=== PATIENT | male | born 1950 | race American Indian/Alaskan Native ===

== ENCOUNTER 2017-08-30 06:07 | Day surgery (SDC) | payer MEDICARE, OTHER ==
[2017-08-30] MEDS ORDERED: WATER FOR IRRIG STERILE IR ONE (07:15)
[2017-08-30] MEDS ORDERED: DIPRIVAN 10 MG/ML IV ONE (07:45)
[2017-08-30] MEDS ORDERED: NACL 0.9% 1000 ML 1,000 ML IV SCH (08:00)
--- NOTE | 2017-08-30 08:10 | Anesthesia Consultation ---
Anesthesia Consult and Med Hx Date of service: 08/30/17 - Airway Anesthetic Teeth Evaluation: Poor (missing all front upper teeth) ROM Head & Neck: Adequate Mental/Hyoid Distance: Adequate Mallampati Class: Class II Intubation Access Assessment: Probably Good - Pulmonary Exam CTA: Yes - Cardiac Exam Cardiac Exam: RRR - Pre-Operative Health Status ASA Pre-Surgery Classification: ASA3 Proposed Anesthetic Plan: MAC - Pulmonary Hx Smoking: Yes (quit 40 yr ago) Hx Asthma: No Hx Sleep Apnea: No - Cardiovascular System Hx Hypertension: Yes Hx Heart Attack/AMI: No Hx Cardia Arrhythmia: Yes (denies CP or SOB) - Endocrine Hx Renal Disease: Yes (follow with mobile paint specialist, said it has greatly improved) Hx Non-Insulin Dependent Diabetes: Yes - Other Systems Hx Obesity: Yes - Additional Comments Anesthesia Medical History Comments: NAC
--- NOTE | 2017-08-30 08:10 | Anesthesia Day of Surgery ---
Anesthesia Day of Surgery - Day of Surgery Patient Examined: Yes Patient H&P Reviewed: Yes Patient is NPO: Yes
--- NOTE | 2017-08-30 08:32 | Discharge Summary ---
Providers - Providers Attending physician: LIV LANE Primary care physician: MONET BOJORQUEZ Hospitalization Procedures: egd Hospital course: 67 y.o. male presented to endoscopy for EGD to evaluate the anatomy of his stomach prior to upcoming bariatric surgery. The patient tolerated the procedure well. Disposition: - TO HOME OR SELFCARE Core Measure Documentation - Palliative Care Palliative Care/ Comfort Measures: Not Applicable - Core Measures Any of the following diagnoses?: none Exam - Physical Exam Narrative exam: no change from prior - Constitutional Vitals: Temp Pulse Resp BP Pulse Ox 98.4 F 74 12 184/95 97 08/30/17 07:50 08/30/17 07:50 08/30/17 07:50 08/30/17 07:50 08/30/17 07:50 Plan Follow up with: MONET BOJORQUEZ MD [Primary Care Provider] - 7 Days
--- NOTE | 2017-08-30 08:34 | Operative Report ---
Operative Report Operative Report: OPERATIVE REPORT - EGD DATE 08/30/17 SURGERY: Upper endoscopy. SURGEON: Dr. Kane M.D. TURF SALES PERSON: Willow De Los Santos DO PRE OP DX: dyspepsia POST OP DX: small hiatal hernia TYPE OF ANESTHESIA: MAC. ESTIMATED BLOOD LOSS: None. COMPLICATIONS: None. SPECIMENS REMOVED: None. FINDINGS: 1. Small hiatal hernia. 2. Otherwise, normal esophagus, stomach and first portion of duodenum. INDICATIONS:INDICATION FOR PROCEDURE: Patient is a 67-year-old male with a long history of morbid obesity. He is planned to have a weight loss procedure and is here for preoperative planning EGD to evaluate the anatomy of his stomach. PROCEDURE DETAILS: After consent was reviewed, patient was taken back to the operating room where patient was placed in the left lateral decubitus position and a bite block was placed in the mouth. After a time-out was called, MAC anesthesia was initiated. I then passed the endoscope into his oropharynx, into her esophagus, visualized the entire esophagus, which was all within normal limits. I then visualized the stomach and the first portion of the duodenum and there were no abnormalities I could clearly visualize. I then retroflexed the scope in the stomach and visualized the hiatus and I could see a small hiatal hernia. I then desufflated the stomach and removed the endoscope. Patient tolerated procedure well and was transferred to recovery room in good and stable condition.
[2017-08-30 09:05] VITALS: BP 160/85
--- NOTE | 2017-08-30 09:15 | Post Anesthesia Evaluation ---
- Post Anesthesia Evaluation Patient Participated: Yes Airway Patent: Yes Stable Respiratory Function: Yes Temp > 96.8F: Yes Pain Manageable: Yes Adequeate Hydration: Yes Anesthesia Complications: No
== END 2017-08-30 06:08 | disposition home or self-care (01) ==
LOC: GIO 06:07
PROVIDERS: ATTEND Specialist
DX: R10.13 Epigastric pain (principal); K44.9 Diaphragmatic hernia without obstruction or gangrene; I10 Essential (primary) hypertension; E11.9 Type 2 diabetes mellitus without complications; E66.01 Morbid (severe) obesity due to excess calories; Z68.39 Body mass index [BMI] 39.0-39.9, adult; Z96.659 Presence of unspecified artificial knee joint; Z98.890 Other specified postprocedural states
CPT/HCPCS: 43235; 82962; J2704; J7030

== ENCOUNTER 2017-08-31 09:07 | Inpatient (IN) | payer MEDICARE ==
--- NOTE | 2017-08-31 09:56 | Anesthesia Consultation ---
Anesthesia Consult and Med Hx Date of service: 08/31/17 - Airway Anesthetic Teeth Evaluation: Poor (multiple missing teeth) ROM Head & Neck: Adequate Mental/Hyoid Distance: Adequate Mallampati Class: Class III Intubation Access Assessment: Possibly Difficult - Pre-Operative Health Status ASA Pre-Surgery Classification: ASA3 Proposed Anesthetic Plan: General - Pulmonary Hx Smoking: Yes (quit 40 yr ago) Hx Asthma: No Hx Sleep Apnea: No (analysis consultant ruled out) - Cardiovascular System Hx Hypertension: Yes (since 1975) Hx Heart Attack/AMI: No Hx Cardia Arrhythmia: Yes (denies CP or SOB) - Central Nervous System Hx Back Pain: Yes Hx Psychiatric Problems: No - Endocrine Hx Renal Disease: Yes (follow with tonal regulator, said it has greatly improved) Hx Insulin Dependent Diabetes: Yes (on insulin and Lantus) - Other Systems Hx Alcohol Use: No Hx Substance Use: No Hx Cancer: No Hx Obesity: Yes (BMI 39.1)
[2017-09-06] MEDS ORDERED: REGLAN IV PRN (05:33)
[2017-09-06] MEDS ORDERED: APRESOLINE IV PRN (05:33)
[2017-09-06] MEDS ORDERED: NORCO PO PRN (05:33)
[2017-09-06] MEDS ORDERED: TRANSDERM-SCOP TD SCH (06:00)
[2017-09-06] MEDS ORDERED: ANCEF/STERILE WATER 2 GM/20 ML 2 GM/20 ML SYRINGE IV NR (06:00)
[2017-09-06] MEDS ORDERED: FLAGYL 500 MG/100 ML 500 MG/100 ML BAG IV NR ×2 (06:00→08:00)
[2017-09-06] MEDS ORDERED: LOVENOX SUB-Q NR ×2 (06:00→08:00)
[2017-09-06] MEDS ORDERED: VERSED IV NR (07:00)
[2017-09-06] MEDS ORDERED: PEPCID IV NR (07:00)
[2017-09-06] MEDS ORDERED: NACL 0.9% 1000 ML 1,000 ML IV SCH ×2 (07:00→08:00)
[2017-09-06] MEDS ORDERED: XYLOCAINE MPF 2% ONE (07:37)
[2017-09-06] MEDS ORDERED: ZOFRAN ONE (07:37)
[2017-09-06] MEDS ORDERED: DECADRON ONE (07:37)
[2017-09-06] MEDS ORDERED: ZEMURON IV ONE (07:37)
[2017-09-06] MEDS ORDERED: SUBLIMAZE ONE (07:38)
[2017-09-06] MEDS ORDERED: DIPRIVAN 10 MG/ML IV ONE (07:38)
[2017-09-06] MEDS ORDERED: NACL BACTERIOSTATIC INFILTRATI ONE (07:57)
[2017-09-06] MEDS ORDERED: VERSED ONE (08:03)
[2017-09-06] MEDS ORDERED: PEPCID IV ONE (08:03)
--- NOTE | 2017-09-06 08:03 | Anesthesia Day of Surgery ---
Anesthesia Day of Surgery - Day of Surgery Patient Examined: Yes Patient H&P Reviewed: Yes Patient is NPO: Yes
[2017-09-06] MEDS ORDERED: MARCAINE 0.5% 30 ML INFILTRATI ONE (08:15)
[2017-09-06] MEDS ORDERED: XYLOCAINE 1% MPF 5 mL ONE (08:15)
[2017-09-06] MEDS ORDERED: MARCAINE 0.5% INFILTRATI ONE ×2 (08:45)
[2017-09-06] MEDS ORDERED: NACL 0.9% IR ONE ×2 (08:45)
[2017-09-06] MEDS ORDERED: XYLOCAINE 1% 20 mL INFILTRATI ONE ×2 (08:45)
[2017-09-06] MEDS ORDERED: ROBINUL ONE ×2 (09:32)
[2017-09-06] MEDS ORDERED: NEOSTIGMINE ONE (09:33)
[2017-09-06] MEDS ORDERED: DILAUDID ONE ×2 (09:33→11:24)
[2017-09-06] MEDS ORDERED: NACL 0.9% 1000 ML 1,000 ML ONE (10:04)
--- NOTE | 2017-09-06 10:44 | Operative Report ---
Operative Report Operative Report: Operative Report DATE OF PROCEDURE: 09/06/17 PREOPERATIVE DIAGNOSES: Morbid obesity, hiatal hernia POSTOPERATIVE DIAGNOSES: 1.same as pre-op SURGEON: Dr. Middleton EDGE BEADER: Dr.Speights Mcgarry DO PROCEDURE: 1. laparoscopic sleeve gastrectomy 2. laparoscopic hiatal hernia repair ANESTHESIA: General. ESTIMATED BLOOD LOSS: <5 mL. COMPLICATIONS: None. SPECIMEN: Partial gastrectomy. FINDINGS: 1. hiatal hernia INDICATION FOR PROCEDURE: Patient is a 67-year-old male with a long history of morbid obesity. He has tried multiple efforts at weight loss without longterm success. Pt is here today for sleeve gastrectomy. PROCEDURE IN DETAIL: After consent was reviewed, patient was taken back to the operating room, where patient was placed supine on the bed with both arms out. The patient's legs were doubly strapped to the bed. Patient had a foot board in place. Patient had a body warmer placed by anesthesia. Patient was then prepped and draped in normal sterile surgical fashion. After a time-out was called, I made a stab incision in the umbilicus and placed a Veress needle through this incision and insufflated the abdomen to 18 mmHg pressure. Once the abdomen was adequately insuflated I widened the umbical incision were the veress had been placed and inserted a 15mm trocar. I then placed a 45-degree scope through this port and inspected the abdomen. There was no injury on entry of the abdomen. I then placed two 5-mm ports in the right upper quadrant, one along the anterior axillary line and 1 subxiphoid below the costovertebral angle. I then placed left upper quadrant port along the anterior axillary line in a similar fashion. I then placed the liver retractor through the subxiphoid port and placed the patient in full reverse Trendelenburg. The right and left crura were skeletonized accentuating a small hiatal hernia. An anterior cruraplasty was perfromed with a figure-of-8 stitch using [id number] with 0 ethibond suture to reapproximate the crura. I then identified the pylorus and then counted off 6cm from the pylorus. I then used a LigaSure cutting device to enter into the lesser sac. At that point and then I took down the short gastrics all the way up to the left mireya. Then I had anesthesia pass down a 40 Hebrew bougie along the lesser curvature of the stomach. I made sure everything else was out of the abdomen except the bougie. I then created my gastric sleeve using a 60-mm laparoscopic stapler. . The sleeve looked good without any twisting or torsion. I then had anesthesia to remove the bougie. Hemostasis was obtained along the staple line. I then used Tiseel along the entirety of the staple line and some on the liver. I then removed liver grasper and took it off the field. I then removed the stomach through the 15-mm umbilcal port. I then closed that fascia with a #1 PDS in a [id number] fashion using a Kenroy-Funmilayo. I then desufflated the abdomen and then removed all port sites. I then closed the incisions with 4-0 Monocryl in subcuticular fashion. I then dressed the wounds with steristrips, gauze and tegaderms. Patient tolerated the procedure well and was transferred to recovery room in good and stable condition
[2017-09-06] MEDS ORDERED: DILAUDID IV PRN ×2 (11:25→11:30)
[2017-09-06] MEDS: CATAPRES PO SCH ×2 (14:00→20:42)
[2017-09-06] MEDS: MORPHINE IV PRN ×2 (15:12→20:44)
[2017-09-06] MEDS: ZOFRAN IV PRN (15:23)
[2017-09-06] MEDS: MYLICON PO PRN (18:38)
[2017-09-06] MEDS: NOVOLOG SUB-Q SCH (18:38)
[2017-09-06] MEDS: APRESOLINE PO SCH (22:09)
[2017-09-07] MEDS: NOVOLOG SUB-Q SCH ×2 (01:05→02:11)
[2017-09-07] MEDS: LACTATED RINGERS 1,000 ML IV SCH ×4 (01:40→21:40)
[2017-09-07] MEDS: MYLICON PO PRN (04:15)
[2017-09-07] MEDS: MORPHINE IV PRN ×2 (04:41→10:56)
[2017-09-07] MEDS: CATAPRES PO SCH ×3 (08:00→21:42)
[2017-09-07] MEDS: ZOFRAN IV PRN (10:56)
[2017-09-07] MEDS: APRESOLINE PO SCH ×2 (11:00→21:42)
[2017-09-07] MEDS: LOVENOX SUB-Q SCH (11:00)
[2017-09-07] MEDS: NORVASC PO SCH (11:01)
[2017-09-07 11:18] LABS: Basophils % (Auto) 0.2 % (0.0-1.8); Hematocrit 36.7 % (35.5-45.6); Hemoglobin 11.7 gm/dl (11.8-15.2); Mean Corpuscular HGB Conc 32 % (32-34); Mean Corpuscular Hemoglobin 26 pg (28-32); Mean Corpuscular Volume 83 fl (84-94); Platelet Count 315 K/mm3 (140-440); Red Blood Count 4.43 M/mm3 (3.65-5.03); Red Cell Distribution Width 16.5 % (13.2-15.2); White Blood Count 17.7 K/mm3 (4.5-11.0)
[2017-09-07 12:04] LABS: Alanine Aminotransferase 12 units/L (7-56); Albumin 3.6 g/dL (3.9-5); Albumin/Globulin Ratio 0.9 %; Alkaline Phosphatase 59 units/L (35-129); Anion Gap 22 mmol/L; BUN/Creatinine Ratio 12; Blood Urea Nitrogen 14 mg/dL (9-20); Calcium 9.1 mg/dL (8.4-10.2); Carbon Dioxide 20 mmol/L (22-30); Chloride 101.5 mmol/L (98-107); Glucose 174 mg/dL (75-100); Potassium 3.6 mmol/L (3.6-5.0); Sodium 140 mmol/L (137-145); Total Protein 7.7 g/dL (6.3-8.2)
[2017-09-08] MEDS: NOVOLOG SUB-Q SCH ×2 (02:01→07:21)
[2017-09-08 05:29] LABS: Basophils % (Auto) 0.2 % (0.0-1.8); Hematocrit 34.9 % (35.5-45.6); Hemoglobin 11.8 gm/dl (11.8-15.2); Mean Corpuscular HGB Conc 34 % (32-34); Mean Corpuscular Hemoglobin 28 pg (28-32); Mean Corpuscular Volume 82 fl (84-94); Platelet Count 280 K/mm3 (140-440); Red Blood Count 4.26 M/mm3 (3.65-5.03); Red Cell Distribution Width 16.6 % (13.2-15.2); White Blood Count 14.8 K/mm3 (4.5-11.0)
[2017-09-08 05:46] LABS: Anion Gap 16 mmol/L; BUN/Creatinine Ratio 11; Blood Urea Nitrogen 12 mg/dL (9-20); Calcium 8.9 mg/dL (8.4-10.2); Carbon Dioxide 23 mmol/L (22-30); Chloride 104.2 mmol/L (98-107); Glucose 149 mg/dL (75-100); Potassium 3.4 mmol/L (3.6-5.0); Sodium 140 mmol/L (137-145)
[2017-09-08] MEDS: LACTATED RINGERS 1,000 ML IV SCH (08:02)
[2017-09-08] MEDS: CATAPRES PO SCH ×2 (08:03→13:26)
--- NOTE | 2017-09-08 08:26 | Progress Note ---
Assessment and Plan 67 y.o. male s/p lap gastric sleeve with hiatal hernia repair POD 2 Pt doing better compared to yesterday. He is tolerating liquids without vomiting. He nausea has also improved. He will be discharged today. Subjective Narrative: Pt seen and examined- pt feeling much better compared to yesterday. He is tolerating liquids with less nausea. Denies vomiting. He has been ambulating much more compared to prior . afebrile Objective Vital Signs - 12hr 09/07/17 09/07/17 09/07/17 20:30 20:33 21:42 Temperature 98.3 F Pulse Rate 84 84 Respiratory 20 Rate Blood Pressure 177/85 177/85 Blood Pressure [Left] O2 Sat by Pulse 93 Oximetry 09/07/17 09/08/17 09/08/17 22:00 00:06 00:07 Temperature 98.7 F Pulse Rate 84 86 Respiratory 18 20 Rate Blood Pressure 154/73 Blood Pressure [Left] O2 Sat by Pulse 83 L 83 L Oximetry 09/08/17 09/08/17 09/08/17 00:11 04:42 07:24 Temperature 98.7 F 98.7 F 98.3 F Pulse Rate 82 80 85 Respiratory 20 22 18 Rate Blood Pressure 163/75 164/85 Blood Pressure 154/73 [Left] O2 Sat by Pulse 83 L 93 93 Oximetry 09/08/17 09/08/17 08:03 08:20 Temperature Pulse Rate 86 Respiratory Rate Blood Pressure 164/85 Blood Pressure [Left] O2 Sat by Pulse 95 Oximetry - General physical appearance Narrative Exam: gen: A+Ox3 cardio RRR lungs: equal rise and fall of chets abd: soft, tender at incison sites. no rebound no guarding. incision sites are cdi. ext: no c/c/e - Labs 09/08/17 05:02 09/08/17 05:02 Diabetes panel 09/07/17 09/08/17 Range/Units 11:04 05:02 Sodium 140 140 (137-145) mmol/L Potassium 3.6 3.4 L (3.6-5.0) mmol/L Chloride 101.5 104.2 (98-107) mmol/L Carbon Dioxide 20 L 23 (22-30) mmol/L BUN 14 12 (9-20) mg/dL Creatinine 1.2 1.1 (0.8-1.5) mg/dL Glucose 174 H 149 H (75-100) mg/dL Calcium 9.1 8.9 (8.4-10.2) mg/dL AST 17 (5-40) units/L ALT 12 (7-56) units/L Alkaline Phosphatase 59 (35-129) units/L Total Protein 7.7 (6.3-8.2) g/dL Albumin 3.6 L (3.9-5) g/dL Calcium panel 09/07/17 09/08/17 Range/Units 11:04 05:02 Calcium 9.1 8.9 (8.4-10.2) mg/dL Albumin 3.6 L (3.9-5) g/dL Pituitary panel 09/07/17 09/08/17 Range/Units 11:04 05:02 Sodium 140 140 (137-145) mmol/L Potassium 3.6 3.4 L (3.6-5.0) mmol/L Chloride 101.5 104.2 (98-107) mmol/L Carbon Dioxide 20 L 23 (22-30) mmol/L BUN 14 12 (9-20) mg/dL Creatinine 1.2 1.1 (0.8-1.5) mg/dL Glucose 174 H 149 H (75-100) mg/dL Calcium 9.1 8.9 (8.4-10.2) mg/dL Adrenal panel 09/07/17 09/08/17 Range/Units 11:04 05:02 Sodium 140 140 (137-145) mmol/L Potassium 3.6 3.4 L (3.6-5.0) mmol/L Chloride 101.5 104.2 (98-107) mmol/L Carbon Dioxide 20 L 23 (22-30) mmol/L BUN 14 12 (9-20) mg/dL Creatinine 1.2 1.1 (0.8-1.5) mg/dL Glucose 174 H 149 H (75-100) mg/dL Calcium 9.1 8.9 (8.4-10.2) mg/dL Total Bilirubin 0.70 (0.1-1.2) mg/dL AST 17 (5-40) units/L ALT 12 (7-56) units/L Alkaline Phosphatase 59 (35-129) units/L Total Protein 7.7 (6.3-8.2) g/dL Albumin 3.6 L (3.9-5) g/dL
--- NOTE | 2017-09-08 08:29 | Discharge Summary ---
Providers - Providers Date of Admission: 09/06/17 07:15 Attending physician: LIV LANE Primary care physician: ORACLE BPM CONSULTANT Hospitalization Reason for admission: surgery Condition: Good Procedures: laparoscopic sleeve gastrectomy Hospital course: 67 y.o. M presented to the hospital for laparoscopic sleeve gastrectomy. He tolearted the procedure well. On POD 1 he was very weak and fatigued. He did not tolerate very much liquids. On pod 2 he was much more energetic and was able to to tolerate liquids well with less nausea. He was discharged on POD 2. Disposition: DC-01 TO HOME OR SELFCARE Core Measure Documentation - Palliative Care Palliative Care/ Comfort Measures: Not Applicable - Core Measures Any of the following diagnoses?: none Exam - Physical Exam Narrative exam: Gen: A+Ox3 cardio: rrr lungs equal rise and fall of chest abd: soft tender at incision sites. no rebound no guarding ext: no c/c/e - Constitutional Vitals: Temp Pulse Resp BP Pulse Ox 98.3 F 86 18 164/85 95 09/08/17 07:24 09/08/17 08:03 09/08/17 07:24 09/08/17 08:03 09/08/17 08:20 Plan Activity: other (no lifting >15lbs for 6 weeks ) Diet: clear liquids (sugar free clears ) Wound: keep clean and dry Additional Instructions: follow up for wound check Follow up with: EVIE VALDEZ MD [Primary Care Provider] - 7 Days
[2017-09-08] MEDS ORDERED: POTASSIUM CHLORIDE PO NR (10:00)
[2017-09-08] MEDS: APRESOLINE PO SCH (10:09)
[2017-09-08] MEDS: LOVENOX SUB-Q SCH (10:09)
[2017-09-08] MEDS: NORVASC PO SCH (10:09)
[2017-09-08 13:12] VITALS: BP 167/89
== END 2017-09-08 14:03 | disposition home or self-care (01) | DRG 621 ==
LOC: UNDOADMIN 09:07 → 3A 09:07 → 3B-SURG 09-06 12:13
PROVIDERS: ADMIT Specialist; ATTEND Specialist
PROC: 0DB64Z3 Excision of Stomach, Percutaneous Endoscopic Approach, Vertical (ICD-10-PCS; principal; 2017-09-06)
PROC: 0BQT4ZZ Repair Diaphragm, Percutaneous Endoscopic Approach (ICD-10-PCS; 2017-09-06)
DX: E66.01 Morbid (severe) obesity due to excess calories (principal); K44.9 Diaphragmatic hernia without obstruction or gangrene; Z68.39 Body mass index [BMI] 39.0-39.9, adult; Z87.891 Personal history of nicotine dependence; I10 Essential (primary) hypertension; E11.9 Type 2 diabetes mellitus without complications
CPT/HCPCS: 36415; 80048; 80053; 82962; 83735; 85025; 88307; C9250; J0360; J0690; J1100; J1170; J1650; J1815; J2250; J2270; J2405; J2704; J2710; J2765; J3010; J7030; J7120